=== PATIENT | female | born 1995 | race Caucasian/White ===

== ENCOUNTER 2021-12-08 15:07 | Emergency (ER) | payer OTHER ==
[~2021-12-08] VITALS: Ht 157.5 cm; Wt 74.4 kg
== END 2021-12-08 18:54 | disposition home or self-care (01) ==
LOC: ER 15:07
DX: O20.0 Threatened abortion (principal)

== ENCOUNTER → 2021-12-09 | Emergency (ER) | payer OTHER ==
[~2021-12-09] VITALS: Ht 157.5 cm; Wt 74.4 kg
== END | disposition home or self-care (01) ==
LOC: ER 18:46
DX: O20.8 Other hemorrhage in early pregnancy (principal); Z3A.10 10 weeks gestation of pregnancy

== ENCOUNTER 2024-07-05 11:11 | Inpatient (IN) | payer OTHER ==
[~2024-07-05] VITALS: Ht 157.5 cm; Wt 75.3 kg
[2024-07-05] MEDS ORDERED: LACTOBACILLUS ACIDOPHILUS 1 CAP CAP PO STA (12:37)
[2024-07-05 13:38] LABS: HEMATOCRIT 30.7 % (36.0-45.00); HEMOGLOBIN 10.4 g/dL (12.0-15.00); MEAN CELL VOLUME 84.3 fL (80.00-100.00); MEAN CORPUSCULAR HEMOGLOBIN 28.6 pg (27.00-32.0); PLATELET COUNT 231 K/uL (150-450); RED BLOOD COUNT 3.64 M/uL (4.00-6.00); RED CELL DISTRIBUTION WIDTH 13.3 % (11.5-14.5)
[2024-07-05 14:12] LABS: CREATININE SERUM 0.6 mg/dL (0.55-1.02); GFR 119.04; POTASSIUM 3.97 mEq/L (3.5-5.1)
[2024-07-05 14:51] LABS: URINE APPEARANCE Clear; URINE BILIRRUBIN Negative (NEGATIVE); URINE BLOOD Large; URINE COLOR Yellow; URINE GLUCOSE Negative (NEGATIVE); URINE KETONE Negative (NEGATIVE); URINE LEUKOCYTE Negative; URINE NITRATE Negative; URINE PROTEIN Negative (NEGATIVE); URINE UROBILINOGEN 0.2 E.U./dl
[2024-07-05 14:54] LABS: URINE BACTERIA 997.9 uL (0.0-1933); URINE EPITHELIAL CELLS 27.3 uL (0.0-38.8); URINE WBC 14.2 uL (0.0-23.2)
[2024-07-05 14:57] LABS: URINE RBC 1.2 uL (0.0-20.8)
[2024-07-05] MEDS ORDERED: RINGERS SOLUTION,LACTATED 1,000 ML IV ONE (18:30)
[2024-07-05 19:12] LABS: INR 1.03; PARTIAL THROMBOPLASTIN TIME 27.8 SECONDS (22.0-34.0); PROTHROMBIN TIME 11.2 SECONDS (9.0-11.5)
[2024-07-05] MEDS ORDERED: PROMETHAZINE HCL 50 MG/ML AMPUL IM PRN (22:30)
[2024-07-05] MEDS ORDERED: MEPERIDINE HCL/PF 50 MG/ML VIAL IM PRN (22:30)
[2024-07-06 03:28] VITALS: BP 116/77
[2024-07-06 04:15] VITALS: O2SAT 100
[2024-07-06 06:50] LABS: HEMATOCRIT 28.2 % (36.0-45.00); HEMOGLOBIN 9.4 g/dL (12.0-15.00); MEAN CELL VOLUME 85.2 fL (80.00-100.00); MEAN CORPUSCULAR HEMOGLOBIN 28.3 pg (27.00-32.0); MEAN CORPUSCULAR HGB CONC 33.3 g/dl (32.0-36.0); PLATELET COUNT 220 K/uL (150-450); RED BLOOD COUNT 3.31 M/uL (4.00-6.00)
[2024-07-06] MEDS ORDERED: OxyCODONE HCL/APAP UD (PERCOCET) PO PRN (08:00)
[2024-07-06] MEDS ORDERED: DOCUSATE SODIUM 100MG CAP PO SCH (08:00)
[2024-07-06] MEDS ORDERED: SIMETHICONE 125 MG CAPSULE PO SCH (08:00)
[2024-07-06 08:21] VITALS: BP 115/66
[2024-07-06 15:57] VITALS: BP 133/69
[2024-07-06 19:55] VITALS: BP 106/69
[2024-07-07 01:25] VITALS: BP 114/72
[2024-07-07 08:39] VITALS: BP 125/78
== END 2024-07-07 10:01 | disposition home or self-care (01) | DRG 743 ==
LOC: ER 11:13 → O/R 19:30 → OB/GYN 19:30
PROVIDERS: General Practice; Preventive Medicine Public Health & General Preventive Medicine; ADMIT Obstetrics & Gynecology; ATTEND Obstetrics & Gynecology
PROC: BU4CZZZ Ultrasonography of Uterus and Ovaries (ICD-10-PCS; 2024-07-05)
PROC: 0UB10ZZ Excision of Left Ovary, Open Approach (ICD-10-PCS; principal; 2024-07-06)
DX: N83.12 Corpus luteum cyst of left ovary (principal); N83.202 Unspecified ovarian cyst, left side; K52.9 Noninfective gastroenteritis and colitis, unspecified; Z20.822 Contact with and (suspected) exposure to COVID-19

== ENCOUNTER 2025-06-16 17:57 | Emergency (ER) | payer OTHER ==
[~2025-06-16] VITALS: Ht 157.5 cm; Wt 88.5 kg
[2025-06-16] MEDS ORDERED: 0.9 % SODIUM CHLORIDE 500 ML IV SCH (19:15)
[2025-06-16] MEDS ORDERED: KETOROLAC TROMETHAMINE 30 MG VIAL IV ONE (19:15)
[2025-06-16] MEDS ORDERED: 0.9 % SODIUM CHLORIDE 500 ML IV ONE (19:15)
[2025-06-16] MEDS ORDERED: KETOROLAC TROMETHAMINE 30 MG VIAL ONE (21:12)
[2025-06-16 21:48] LABS: BASO % 0.6 % (0.1-1.2); EOS # 0.19 (0.04-0.54); EOS % 2.4 % (0.7-7.0); LYMPH # 2.62 (1.18-3.74); LYMPH % 33.2 % (19.3-53.1); MEAN PLATELET VOLUME 11.00 fl (9.4-12.4); MONO # 0.67 (0.24-0.82); MONO % 8.5 % (4.7-12.5); NEUT # 4.33 (1.56-6.13); NEUT % 55.0 % (34.0-71.1); RED CELL DISTRIBUTION WIDTH 12.3 % (11.6-14.4)
[2025-06-16 22:11] LABS: ERYTHROCYTE SEDIMENTATION RATE 39 mm/hr (0-20)
[2025-06-16 22:19] LABS: INR 1.0
[2025-06-16 22:34] LABS: ALT/SGPT 20.0 U/L (12-78); AST/SGOT 11.0 U/L (15-37); BILIRUBIN TOTAL 0.36 mg/dL (0.3-1.2); BUN CREA RATIO 19.0 (7.0-25.0); CREATININE SERUM 0.64 mg/dL (0.55-1.02); GFR 110.49; GLOBULINA 3.9 G/DL (2.4-3.5); GLUCOSE FASTING 102.0 mg/dL (65-100); HCG QUANTITATIVE 2.0 mUI/mL (1-3); OSMOLALITY SERUM 279.0 MOSM/KG (275-295)
[2025-06-16 22:38] LABS: COVID-19 AG NEGATIVE (NEGATIVE)
[2025-06-17] MEDS ORDERED: INTEGRA CAPSUL1 EACH PO (03:35)
== END 2025-06-17 03:43 ==
LOC: ER 17:58
DX: N93.9 Abnormal uterine and vaginal bleeding, unspecified (principal); R42 Dizziness and giddiness; R10.21 Pelvic and perineal pain right side; Z20.822 Contact with and (suspected) exposure to COVID-19; D25.9 Leiomyoma of uterus, unspecified